=== PATIENT | male | born 1965 | race Caucasian/White ===

== ENCOUNTER 2018-12-05 18:10 | Emergency (ER) | payer SELFPAY ==
[~2018-12-05] VITALS: Ht 165.1 cm; Wt 59.0 kg
[2018-12-05] MEDS ORDERED: MORPHINE SULFATE 4 MG/ML CPJ (NOT FOR IM USE) IV STA (18:44)
[2018-12-05] MEDS ORDERED: ONDANSETRON HCL 4MG/2ML INJ IV STA (18:44)
[2018-12-05] MEDS ORDERED: KETOROLAC 30MG/ML VIAL IV STA (18:44)
[2018-12-05] MEDS ORDERED: SODIUM CHLORIDE 0.9% 1,000 ML IV ONE (18:44)
[2018-12-05 19:04] LABS: HEMATOCRIT. 37.4 % (42.0-52.0); HEMOGLOBIN. 12.6 g/dL (14.0-18.0); MEAN CORPUSCULAR HEMOGLOBIN 29.9 pg (28.0-32.0); MEAN CORPUSCULAR VOLUME 88.5 fL (80.0-94.0); MEAN PLATELET VOLUME 9.3 fl (7.4-10.4); PLATELET 180 x1000/uL (130-400); RED BLOOD CELL COUNT 4.22 mill/uL (4.7-6.1); RED CELL DISTRIBUTION WIDTH 14.7 % (11.6-14.6)
[2018-12-05 19:08] LABS: CHLORIDE 102 mEq/L (98-107)
[2018-12-05 19:12] LABS: ETHANOL BLOOD < 10 mg/dL
[2018-12-05 19:21] LABS: PLATELET ESTIMATE NORMAL
[2018-12-05] MEDS ORDERED: LORAZEPAM 2MG/ML CPJ IV ONE (22:30)
[2018-12-05 23:57] LABS: *AMPHETAMINES SCREEN URINE PRESUMTIVE POSITIVE (NEGATIVE); *BARBITURATES SCREEN URINE NEGATIVE (NEGATIVE); *BENZODIAZEPINES SCREEN URINE NEGATIVE (NEGATIVE); *COCAINE SCREEN URINE PRESUMTIVE POSITIVE (NEGATIVE)
[2018-12-05 23:58] LABS: CANNABINOID URINE SCREEN NEGATIVE (NEGATIVE); METHADONE URINE SCREEN NEGATIVE (NEGATIVE); OPIATES URINE SCREEN NEGATIVE (NEGATIVE); PHENCYCLIDINE URINE SCREEN NEGATIVE (NEGATIVE)
[2018-12-06] MEDS ORDERED: SODIUM CHLORIDE 0.9% 1,000 ML IV ONE (02:31)
[2018-12-06] MEDS ORDERED: LORAZEPAM 2MG/ML CPJ IV ONE (02:45)
[2018-12-06 13:54] VITALS: BP 116/72
== END 2018-12-06 11:50 | disposition home or self-care (01) ==
LOC: ER 18:10
DX: R51 Headache (principal); J44.9 Chronic obstructive pulmonary disease, unspecified; J98.11 Atelectasis
CPT/HCPCS: 36415; 70450; 71045; 80053; 80305; 80320; 83690; 83880; 84484; 85025; 93005; 96374; 96375; 96376; 99284; J1885; J2060; J2270; J2405; J7030; G0480